=== PATIENT | female | born 1940 | race Caucasian/White ===

== ENCOUNTER 2018-05-10 23:13 | Emergency (ER) | payer BC, MEDICARE ==
--- NOTE | 2018-05-10 23:36 | ED ---
Lower Extremity - HPI Summary HPI Summary: This is lemuel Romo documenting for attending Dr. Chilo Velasquez This patient is a 77 year old F presenting to [facility] accompanied by a friend with a chief complaint of right ankle pain since this PM. Pt applied ice [employer]. Pt denies weight bearing, and declines pain meds. Pt states she got her foot caught in a chair and tripped, twisting her right ankle in the chair. - History of Current Complaint Chief Complaint: EDExtremityLower Stated Complaint: FALL/RT ANKLE INJURY Time Seen by Provider: 05/10/18 23:32 Hx Obtained From: Patient Mechanism Of Injury: Fall From A Standing Position, Twisted Onset of Pain: Immediate, Post Accident, Prior to Arrival Onset/Duration: Still Present Severity Initially: Severe Severity Currently: Severe Pain Intensity: 10 Pain Scale Used: 0-10 Numeric Timing: Constant Location: Is Discrete @ - right ankle Associated Signs And Symptoms: Positive: Swelling Aggravating Factor(s): Standing, Ambulation, Movement, Weight Bearing Alleviating Factor(s): Ice Able to Bear Weight: No - Allergies/Home Medications Allergies/Adverse Reactions: Allergies Allergy/AdvReac Type Severity Reaction Status Date / Time codeine Allergy Unknown Verified 05/10/18 23:16 Reaction Details naproxen [From Aleve] Allergy Unknown Verified 05/10/18 23:16 Reaction Details PMH/Surg Hx/FS Hx/Imm Hx Endocrine/Hematology History: Denies: Hx Sickle Cell Disease Sensory History: Denies: Hx Legally Blind, Hx Deafness Opthamlomology History: Denies: Hx Legally Blind EENT History: Denies: Hx Deafness Psychiatric History: Denies: Hx Panic Disorder - Cancer History Hx Radiation Therapy: Yes Infectious Disease History: No Infectious Disease History: Denies: Traveled Outside the [place] in Last 30 Days - Family History Known Family History: Negative: Blood Disorder - Social History Occupation: Retired Review of Systems Negative: Fever Positive: Arthralgia - right ankle, Decreased ROM, Edema Positive: Bruising All Other Systems Reviewed And Are Negative: Yes Physical Exam - Summary Physical Exam Summary: VITAL SIGNS: Reviewed. GENERAL: Patient is a well-developed and nourished female who is lying comfortable in the stretcher. Patient is not in any acute respiratory distress. HEAD AND FACE: No signs of trauma. No ecchymosis, hematomas or skull depressions. No sinus tenderness. EYES: PERRLA, EOMI x 2, No injected conjunctiva, no nystagmus. EARS: Hearing grossly intact. Ear canals and tympanic membranes are within normal limits. MOUTH: Oropharynx within normal limits. NECK: Supple, trachea is midline, no adenopathy, no JVD, no carotid bruit, no c- spine tenderness, neck with full ROM. CHEST: Symmetric, no tenderness at palpation LUNGS: Clear to auscultation bilaterally. No wheezing or crackles. CVS: Regular rate and rhythm, S1 and S2 present, no murmurs or gallops appreciated. ABDOMEN: Soft, non-tender. No signs of distention. No rebound no guarding, and no masses palpated. Bowel sounds are normal. EXTREMITIES: FROM in all major joints, no edema, no cyanosis or clubbing. Mild swelling and ecchymosis over right ankle calcaneus process, neurovascular exam is intact. NEURO: Alert and oriented x 3. No acute neurological deficits. Speech is normal and follows commands. SKIN: Dry and warm Triage Information Reviewed: Yes Vital Signs On Initial Exam: Initial Vitals Temp Pulse Resp BP Pulse Ox 98.1 F 58 16 173/64 99 05/10/18 23:16 05/10/18 23:16 05/10/18 23:16 05/10/18 23:16 05/10/18 23:16 Vital Signs Reviewed: Yes Diagnostics - Vital Signs Vital Signs Temp Pulse Resp BP Pulse Ox 05/10/18 23:16 98.1 F 58 16 173/64 99 - Laboratory Lab Statement: Any lab studies that have been ordered have been reviewed, and results considered in the medical decision making process. - Radiology Right ankle Xray Interpretation: No Acute Changes Radiology Interpretation Completed By: ED Physician - No Fx. Right foot Xray Interpretation: No Acute Changes Radiology Interpretation Completed By: ED Physician - No fx. Re-Evaluation - Re-Evaluation First Eval Re-Evaluation Time: 00:26 Change: Unchanged Comment: Discussed imaging results. Lower Extremity Course/Dx - Course Course Of Treatment: A 77-year-old F presents to the ED with a CC of right ankle pain. (+) pain, swelling, bruising. (-) able to bear weight/ambulation. Pt declined pain medications. A right ankle XR reveals no Fx. A right foot XR reveals no fx. - Diagnoses Provider Diagnoses: Right ankle sprain Discharge - Sign-Out/Discharge Documenting (check all that apply): Patient Departure - Discharge Plan Condition: Stable Disposition: HOME Patient Education Materials: Ankle Sprain (ED) Referrals: Amanda Zimmer MD [Medical Doctor] - 3 Days Additional Instructions: Return to the emergency department for any new or worsening symptoms. Weight bearing as tolerated. Recommend rest, ice, and elevation. - Billing Disposition and Condition Condition: STABLE Disposition: Home
[2018-05-11 01:09] VITALS: BP 0/0
--- NOTE | 2018-05-11 07:53 | RAD ---
INDICATION: Right ankle pain COMPARISON: None TECHNIQUE: AP, lateral, and oblique views were obtained. FINDINGS: There is no acute fracture. Ankle mortise is intact. There are heel spurs. The soft tissues are normal IMPRESSION: NO ACUTE FRACTURE.
--- NOTE | 2018-05-11 07:54 | RAD ---
INDICATION: Fall. Right foot pain COMPARISON: None TECHNIQUE: AP, lateral, and oblique views were obtained. FINDINGS: There is no acute fracture. The articular relationships are maintained. There are heel spurs. The soft tissues are intact. Note is made of mild hammertoe deformities.. IMPRESSION: NO ACUTE BONY FINDINGS.
== END 2018-05-11 01:07 | disposition home or self-care (01) ==
LOC: ED 23:13
DX: S93.401A Sprain of unspecified ligament of right ankle, initial encounter (principal); W19.XXXA Unspecified fall, initial encounter; Y92.9 Unspecified place or not applicable
CPT/HCPCS: 99282